=== PATIENT | male | born 1995 | race Two or more races ===

== ENCOUNTER 2023-04-12 13:52 | Emergency (ER) | payer MEDICAID ==
[~2023-04-12] VITALS: Ht 182.9 cm; Wt 85.2 kg
[2023-04-12 14:01] VITALS: BP 123/78; RESP 18; O2SAT 96
[2023-04-12] MEDS ORDERED: AZIT500T66 PO (15:15)
[2023-04-12] MEDS ORDERED: BENZ200C64 PO (15:15)
[2023-04-12 15:20] VITALS: PULSE 76; TEMP 98
[2023-04-12] MEDS ORDERED: PRED20TA2 PO (21:22)
[2023-04-12] MEDS ORDERED: IBUP-1455 PO (21:22)
[2023-04-12] MEDS ORDERED: ALBUAER3 IN (21:22)
== END 2023-04-12 15:24 | disposition home or self-care (01) ==
LOC: ER 13:52
DX: J20.9 Acute bronchitis, unspecified (principal)
CPT/HCPCS: 71046

== ENCOUNTER 2023-04-12 17:53 | Emergency (ER) | payer MEDICAID ==
[~2023-04-12] VITALS: Ht 182.9 cm; Wt 85.2 kg
[~2023-04-12 17:53] MED LIST: AZIT500T66 PO; BENZ200C64 PO
[2023-04-12 21:03] LABS: Urine Bacteria NONE SEEN /hpf (None Seen); Urine Blood Negative /uL (Negative); Urine Clarity Clear (Clear); Urine Color Colorless (Yellow); Urine Protein, UAD Negative (Negative); Urine Specific Gravity 1.012 (1.001-1.035); Urine Urobilinogen Normal (Negative); Urine WBC 2 /hpf (0 - 3); Urine pH 5.5 (5.0-8.0)
[2023-04-12] MEDS ORDERED: PRED20TA2 PO (21:22)
[2023-04-12] MEDS ORDERED: IBUP-1455 PO (21:22)
[2023-04-12] MEDS ORDERED: ALBUAER3 IN (21:22)
[2023-04-12] MEDS ORDERED: ACETAMINOPHEN 325 MG TAB PO ONE (21:30)
[2023-04-12] MEDS ORDERED: cefTRIAXone SOD 1,000 MG VL IM ONE (21:30)
[2023-04-12] MEDS ORDERED: DexAMETHasone SOD PHOS 10MG/1ML VIAL INJ IM ONE (21:30)
[2023-04-12 21:50] VITALS: BP 126/80; O2SAT 98
[2023-04-12 21:51] VITALS: PULSE 87; RESP 18
[2023-04-12 23:17] VITALS: TEMP 98.3
== END 2023-04-13 00:03 | disposition home or self-care (01) ==
LOC: ER 17:53
DX: J03.90 Acute tonsillitis, unspecified (principal); J40 Bronchitis, not specified as acute or chronic
CPT/HCPCS: 81001; 96372; 99284; J0696; J1100